=== PATIENT | female | born 1985 | race Caucasian/White ===

== ENCOUNTER 2016-07-28 20:51 | Emergency (ER) | payer SELFPAY ==
[~2016-07-28 20:51] MED LIST: FIORICET1 CAP PO
[2016-07-29 00:11] LABS: CALCIUM 8.7 mg/dL (8.5-10.1); CARBON DIOXIDE 24.2 mmol/L (21-32); CHLORIDE SERUM 105 mmol/L (98-107); CREATININE SERUM 0.6 mg/dL (0.6-1.0); GFR1 > 60 mL/min; GLUCOSE SERUM 101 mg/dL (74-106); POTASSIUM SERUM 3.8 mmol/L (3.5-5.1); SODIUM SERUM 140 mmol/L (136-145)
[2016-07-29 00:20] LABS: BASOPHIL % 0.3 % (0-2); PLATELET COUNT 161 x10^3mcL (130-400); RED CELL DISTRIBUTION WIDTH 12.4 % (11.5-14.5)
[2016-07-29 00:24] LABS: ALBUMIN 3.8 g/dL (3.4-5.0); ALKALINE PHOSPHATASE 88 U/L (46-116); ALT/SGPT 31 U/L (14-59); AST/SGOT 19 U/L (15-37); BILIRUBIN TOTAL 0.38 mg/dL (0.20-1.00); C REACTIVE PROTEIN 3.3 mg/dL (<=0.9)
[2016-07-29 00:33] LABS: CK-MB 1.1 ng/mL (0-3.6)
[2016-07-29 00:35] LABS: UA SPECIFIC GRAVITY 1.025 (1.005-1.035); microscopic required? YES; urine erythrocyte 1+ (NEGATIVE)
[2016-07-29 00:57] LABS: T3 TOTAL 1.22 ng/mL
[2016-07-29 01:19] LABS: FREE T4 0.9 ng/dL (0.76-1.46); FREE THYROXINE INDEX 2.1 ug/dL (1.4-4.5); T4(THYROXINE) 7.1 ug/dL (4.7-13.3)
[2016-07-29 01:26] LABS: ERYTHROCYTE SED RATE 41 mm/hr (0-20)
[2016-07-29 02:29] VITALS: BP 118/78
== END 2016-07-29 02:29 | disposition home or self-care (01) ==
LOC: ED 20:51
PROVIDERS: Specialist
DX: J20.9 Acute bronchitis, unspecified (principal); E66.9 Obesity, unspecified; G43.909 Migraine, unspecified, not intractable, without status migrainosus
CPT/HCPCS: 83880; 84439; J0171; J2930; J3475; J7613; J7620; Q0092

== ENCOUNTER 2016-08-22 11:52 | Emergency (ER) | payer SELFPAY ==
[~2016-08-22] VITALS: Ht 165.1 cm; Wt 93.4 kg
[2016-08-22 12:49] VITALS: BP 151/85
== END 2016-08-22 12:49 | disposition home or self-care (01) ==
LOC: ED 11:52
DX: T16.2XXA Foreign body in left ear, initial encounter (principal); R03.0 Elevated blood-pressure reading, without diagnosis of hypertension; G43.909 Migraine, unspecified, not intractable, without status migrainosus; X58.XXXA Exposure to other specified factors, initial encounter; Y93.89 Activity, other specified; Y99.8 Other external cause status; Y92.89 Other specified places as the place of occurrence of the external cause
CPT/HCPCS: J2001

== ENCOUNTER 2018-02-07 08:26 | Emergency (ER) | payer SELFPAY ==
[2018-02-07 08:31] VITALS: Ht 154.9 cm
[2018-02-07 09:32] LABS: CALCIUM 9.2 mg/dL (8.5-10.1); CARBON DIOXIDE 24.4 mmol/L (21-32); CHLORIDE SERUM 100 mmol/L (98-107); CREATININE SERUM 0.6 mg/dL (0.6-1.0); GFR1 > 60 mL/min; GLUCOSE SERUM 128 mg/dL (74-106); POTASSIUM SERUM 3.8 mmol/L (3.5-5.1); SODIUM SERUM 135 mmol/L (136-145)
[2018-02-07 09:44] LABS: ALBUMIN 3.6 g/dL (3.4-5.0); ALKALINE PHOSPHATASE 69 U/L (46-116); ALT/SGPT 40 U/L (14-59); AST/SGOT 18 U/L (15-37); BILIRUBIN TOTAL 0.6 mg/dL (0.20-1.00); T4(THYROXINE) 6.9 ug/dL (4.7-13.3); TOTAL PROTEIN, SERUM 7.5 g/dL (6.4-8.2)
[2018-02-07 09:53] LABS: BASOPHIL % 0.3 % (0-2); PLATELET COUNT 252 x10^3mcL (130-400); RED CELL DISTRIBUTION WIDTH 13.1 % (11.5-14.5)
[2018-02-07 09:53] LABS: AMPHETAMINE QUAL UR NONE DETECTED (See below)
[2018-02-07 11:03] VITALS: BP 122/81
== END 2018-02-07 11:03 | disposition home or self-care (01) ==
LOC: ED 08:26
PROVIDERS: Emergency Medicine
DX: N39.0 Urinary tract infection, site not specified (principal); G43.909 Migraine, unspecified, not intractable, without status migrainosus; Z98.890 Other specified postprocedural states; Z97.5 Presence of (intrauterine) contraceptive device
CPT/HCPCS: 36415; 85378; Q0092

== ENCOUNTER 2019-03-08 02:14 | Emergency (ER) | payer SELFPAY ==
[~2019-03-08] VITALS: Ht 149.9 cm; Wt 84.1 kg
[2019-03-08 02:18] VITALS: BP 129/79
[2019-03-08 03:56] LABS: microscopic required? YES; urine erythrocyte 2+ (NEGATIVE)
== END 2019-03-08 04:15 | disposition home or self-care (01) ==
LOC: ED 02:14
PROVIDERS: Specialist
DX: R10.2 Pelvic and perineal pain (principal); G43.909 Migraine, unspecified, not intractable, without status migrainosus; Z98.890 Other specified postprocedural states
CPT/HCPCS: 87491; 87591; J0696; J1885